=== PATIENT | female | born 1965 | race Caucasian/White ===

== ENCOUNTER → 2016-08-22 | Outpatient (CLI) | payer BC ==
[2016-08-22 09:26] LABS: HEMOGLOBIN 14.4 gm/dl (12.3-15.3); RED BLOOD COUNT 4.42 M/UL (4.00-5.10); WHITE BLOOD COUNT 4.4 K/UL (4.5-11.0)
[2016-08-22 09:47] LABS: BUN/CREATININE RATIO 15 (0-10)
== END ==
LOC: LAB 08:08
PROVIDERS: Nurse Practitioner
DX: Z00.00 Encounter for general adult medical examination without abnormal findings (principal); R53.83 Other fatigue; R53.81 Other malaise; R23.2 Flushing
CPT/HCPCS: 80053; 80061; 82627; 82670; 83001; 83002; 84144; 84402; 84403; 84439; 84443; 85027

== ENCOUNTER → 2016-08-24 | Outpatient (CLI) | payer BC | LOC: MAMO 08:33 | DX: Z12.31 Encounter for screening mammogram for malignant neoplasm of breast (principal); Z98.890 Other specified postprocedural states | CPT/HCPCS: G0202 ==

== ENCOUNTER → 2016-09-05 | Outpatient (CLI) | payer BC | LOC: US 12:18 | DX: R92.2 Inconclusive mammogram (principal) | CPT/HCPCS: 76641-LT; 76641-RT ==

== ENCOUNTER → 2021-03-26 | Outpatient (CLI) | payer BC ==
[2021-03-26 09:52] LABS: HEMOGLOBIN 14.3 gm/dl (12.3-15.3); RED BLOOD COUNT 4.34 M/UL (4.00-5.10)
[2021-03-26 10:11] LABS: BUN/CREATININE RATIO 17 (0-10)
== END ==
LOC: LAB 08:08
PROVIDERS: Physician Assistant
DX: I10 Essential (primary) hypertension (principal); E55.9 Vitamin D deficiency, unspecified; E78.5 Hyperlipidemia, unspecified
CPT/HCPCS: 36415; 80053; 80061; 85025

== ENCOUNTER → 2021-08-04 | Outpatient (CLI) | payer BC | LOC: EXRD 13:45 → MAMO 13:45 → EXRD 14:00 → MAMO 15:00 | DX: Z01.419 Encounter for gynecological examination (general) (routine) without abnormal findings (principal) | CPT/HCPCS: 77063; 77067; 77080 ==